=== PATIENT | female | born 1995 | race Caucasian/White ===

== ENCOUNTER 2016-09-07 23:44 | Emergency (ER) | payer SELFPAY ==
[~2016-09-07] VITALS: Ht 162.6 cm; Wt 127.0 kg
[~2016-09-07 23:44] MED LIST: ACYC200C PO; PHEN200T27 PO; SULF1TAB38 PO
--- OUTSIDE RECORDS SUMMARY | 2016-09-07 23:52 | XMS REPORT ---
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.1 Active Assessment Hypertension, benign I10 Active Assessment Migraine without status migrainosus, not intractable, unspecified migraine type G43.909 Active Problem Otitis externa of right ear 380.10 Active Problem Candidiasis of vulva and vagina 112.1 Active Problem Cyclothymia F34.0 Active Problem Morbid obesity 278.01 Active Problem Other chronic allergic conjunctivitis 372.14 Active Problem Screening examination for venereal disease V74.5 Active Problem Absence of menstruation 626.0 Active Medications Medication Code System Code Instructions Start Date End Date Status Dosage Levothyroxine Sodium [facility] [address]-52 25 MCG Orally Once a day 1 tablet Naproxen [facility] [address]-31 250 MG Orally Twice a day 1 tablet Lisinopril [facility] [address]-31 10 mg Orally Once a day January 16, 2016 1 tablet Kcbkbftcar-EEDO-Faszjexz [facility] [address]-15 50-325-40 MG Orally 4 times a day Mar 13, 2016 1 capsule as needed Wellbutrin [facility] [address]-31 100 MG Orally Twice a day March 06, 2016 1 tablet Claritin [facility] [address]-47 10 mg January 29, 2014 take 1 tablet (10 mg) by oral route once daily Flonase [facility] [address]-02 50 mcg/actuation Nasally Once a day January 29, 2014 1 sprays by Nasal route 2 times per day in each nostril Procedures Procedure Coding System Code Date Office Visit, Est Pt., Level 3 CPT-4 81331 Mar 13, 2016 Vital Signs Date/Time: Mar 13, 2016 Cardiac Monitoring Heart Rate 88 bpm Weight 271 lbs Height 64 in BMI 46.51 Index Blood Pressure Diastolic 76 mmHg Blood Pressure Systolic 128 mmHg Results No Known Results Summary Purpose eClinicalWorks Submission
--- NOTE | 2016-09-08 03:29 | ED General ---
General Chief Complaint: Dental Problems/Pain Stated Complaint: DENTAL PAIN Nursing Triage Note: intermittant dental pain starting am 09/08/16 Nursing Sepsis Screen: No Definite Risk Source of Information: Patient Exam Limitations: No Limitations History of Present Illness Time Seen by Provider: 03:06 Initial Comments This 21-year-old presents to the emergency room with an eroded and painful right lower tooth. She was previously told she needed a root canal and now the top of the tooth has fractured away. She has not yet seen a dentist since this happened. She has an appointment next Wednesday. Tonight it became severely painful and pain was radiating to her ear. She has tried on separate occasions Aleve, Naprosyn, aspirin, Sudafed, Advil, and Fioricet without significant relief. Allergies and Home Medications Allergies Coded Allergies: No Known Allergies (Unverified Allergy, Mild, 04/01/06) Home Medications Amoxicillin 500 Mg Tablet #40 1,000 MG PO BID Prescribed by: ZINA NAZARIO on 09/08/16 0331 Constitutional: no symptoms reported EENTM: see HPI Respiratory: no symptoms reported Cardiovascular: no symptoms reported Gastrointestinal: no symptoms reported Genitourinary: no symptoms reported Musculoskeletal: no symptoms reported Skin: no symptoms reported Psychiatric/Neurological: No Symptoms Reported Hematologic/Lymphatic: No Symptoms Reported Past Gndfdhw-Pscqpr-Myakgi Hx Patient Social History Alcohol Use: Occasionally Uses Recreational Drug Use: No Smoking Status: Never a Smoker Recent Foreign Travel: No Contact w/Someone Who Travel: No Recent Infectious Disease Expo: No Recent Hopitalizations: No Immunizations Up To Date Tetanus Booster (TDap): Less than 5yrs PED Vaccines UTD: Yes Seasonal Allergies Seasonal Allergies: No Surgeries HX Surgeries: No Respiratory Hx Respiratory Disorders: No Cardiovascular Hx Cardiac Disorders: No Neurological Hx Neurological Disorders: No Reproductive System : No Hx Reproductive Disorders: No Genitourinary Hx Genitourinary Disorders: No Gastrointestinal Hx Gastrointestinal Disorders: No Musculoskeletal Hx Musculoskeletal Disorders: No Endocrine Hx Endocrine Disorders: No HEENT HX ENT Disorders: No Cancer Hx Cancer: No Psychosocial Hx Psychiatric Problems: No Integumentary HX Skin/Integumentary Disorder: No Blood Transfusions Hx Blood Disorders: No Physical Exam Vital Signs Vital Sign - Last 12Hours 09/08/16 00:10 Temp 97.8 Pulse 93 Resp 18 B/P 178/91 Pulse Ox 99 O2 Delivery Room Air Capillary Refill : Less Than 3 Seconds General Appearance: No Apparent Distress WD/WN HEENT: PERRL/EOMI TMs Normal Normal ENT Inspection Pharynx Normal Other ( Right lower tooth severely decayed with no evidence of localized inflammation or abscess) Neck: Normal Inspection Respiratory: Lungs Clear Normal Breath Sounds No Accessory Muscle Use No Respiratory Distress Cardiovascular: Regular Rate, Rhythm No Edema No Murmur Neurologic/Psychiatric: Alert Oriented x3 No Motor/Sensory Deficits Normal 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 Anesthetic gauze pads were prepped and dispensed. Departure Impression Impression: Primary Impression: Dental caries Additional Impression: Pain, dental Disposition: HOME, SELF-CARE Condition: Improved Departure-Patient Inst. Decision time for Depature: 03:15 Referrals: [facility] (PCP/Family) Primary Care Physician Patient Instructions: Dental Pain (DC) Add. Discharge Instructions: Complete your antibiotics as prescribed. Follow-up with a dentist as soon as possible. You may use ibuprofen up to 800 mg every 8 hours as needed or naproxen up to 500 mg twice daily. Add Tylenol up to 1000 mg every 6 hours as needed for additional pain relief. You may use the anesthetic gauze pads as provided. Use them with caution as they may numb your mouth, tongue and throat. Eat and drink carefully after using. Do not fall sleep with gauze pads in your mouth. Return to care if symptoms worsen. All discharge instructions reviewed with patient and/or family. Voiced understanding. Scripts Amoxicillin 500 Mg Tablet1,000 Mg PO BID #40 TAB Prov:ZINA MIR MD 09/08/16 ZINA MIR MD Sep 08, 2016 03:29 ZINA MIR MD Sep 08, 2016 03:29
[2016-09-08] MEDS ORDERED: AMOXICILLIN 500 MG (POLYMOX) CAP PO ONE (03:30)
[2016-09-08] MEDS ORDERED: LIDOCAINE 2% VISCOUS 15 ML UDC PO ONE (03:30)
[2016-09-08] MEDS ORDERED: AMOX500T2 PO (03:31)
[2016-09-08 03:37] VITALS: BP 162/88
== END 2016-09-08 03:37 | disposition home or self-care (01) ==
LOC: EDUNIT# 23:44 → ER 23:48
DX: K02.9 Dental caries, unspecified (principal)
CPT/HCPCS: 99282